=== PATIENT | male | born 1950 | race Caucasian/White ===

== ENCOUNTER 2019-06-10 18:00 | Emergency (ER) | payer MEDICARE ==
[~2019-06-10] VITALS: Ht 177.8 cm; Wt 85.1 kg
[2019-06-10] MEDS ORDERED: SYNT175T2 PO (18:20)
[2019-06-10] MEDS ORDERED: ZEGE20CA PO (18:20)
[2019-06-10] MEDS ORDERED: DULO1CAP6 PO (18:20)
[2019-06-10] MEDS ORDERED: B-122500 PO (18:20)
[2019-06-10] MEDS ORDERED: CLOP75TA2 PO (18:20)
[2019-06-10] MEDS ORDERED: CLAR10CA3 PO (18:20)
[2019-06-10] MEDS ORDERED: TRES100I SC (18:20)
[2019-06-10] MEDS ORDERED: ZYLO300T6 PO (18:20)
[2019-06-10] MEDS ORDERED: REPA1INJ SC (18:20)
[2019-06-10] MEDS ORDERED: FLOM0.4C39 PO (18:20)
[2019-06-10] MEDS ORDERED: LISI-542 PO (18:20)
[2019-06-10] MEDS ORDERED: VITA500079 PO (18:20)
[2019-06-10] MEDS ORDERED: BUPR300T34 PO (18:20)
[2019-06-10] MEDS ORDERED: ASPI81TA85 PO (18:20)
[2019-06-10] MEDS ORDERED: FINA5TAB2 PO (18:20)
[2019-06-10] MEDS ORDERED: NS 500 ML IV ONE (19:15)
[2019-06-10 19:32] LABS: ALBUMIN 3.7 GM/DL (3.2-5.2); ALT/SGPT 41 U/L (12-78); BILIRUBIN,TOTAL 0.5 MG/DL (0.2-1.0); BLOOD UREA NITROGEN 27 MG/DL (7-18); CALCIUM LEVEL 8.6 MG/DL (8.8-10.2); CARBON DIOXIDE LEVEL 26 MEQ/L (21-32); CHLORIDE LEVEL 110 MEQ/L (98-107); CK-MB VALUE MASS 7.2 NG/ML (<3.6); CPK CREATINE PHOSPHOKINASE 131 U/L (26-192); CREATININE FOR GFR 2.06 MG/DL (0.55-1.30); GLOMERULAR FILTRATION RATE 25.5 (>45); GLUCOSE, FASTING 157 MG/DL (70-100); MAGNESIUM LEVEL 2.1 MG/DL (1.8-2.4); POTASSIUM SERUM 4.5 MEQ/L (3.5-5.1); SODIUM LEVEL 142 MEQ/L (136-145); TOTAL PROTEIN 7.1 GM/DL (6.4-8.2); TROPONIN I < 0.02 NG/ML (< 0.10)
[2019-06-10 20:16] LABS: BASO # 0.1 10^3/uL (0.0-0.2); BASO % 0.9 % (0.0-1.0); EOS # 0.2 10^3/uL (0.0-0.5); EOS % 2.3 % (0.0-3.0); HEMATOCRIT 42.8 % (36.0-47.0); HEMOGLOBIN 13.1 g/dl (12.0-15.5); LYMPH # 1.9 10^3/uL (1.5-5.0); LYMPH % 24.3 % (24.0-44.0); MEAN CORPUSCULAR HEMOGLOBIN 27.8 pg (27.0-33.0); MEAN CORPUSCULAR HGB CONC 30.6 g/dl (32.0-36.5); MEAN CORPUSCULAR VOLUME 90.9 fl (80.0-96.0); MONO # 0.8 10^3/uL (0.0-0.8); MONO % 10.5 % (0.0-5.0); NEUTROPHILS # 4.9 10^3/uL (1.5-8.5); NEUTROPHILS % 61.7 % (36.0-66.0); PLATELET COUNT, AUTOMATED 271 10^3/uL (150-450); RED BLOOD COUNT 4.71 10^6/uL (4.00-5.40)
[2019-06-10] MEDS ORDERED: NS 1,000 ML IV SCH (20:45)
[2019-06-10 23:30] VITALS: BP 135/80
[2019-06-10 23:43] LABS: CK-MB VALUE MASS 6.5 NG/ML (<3.6); CPK CREATINE PHOSPHOKINASE 109 U/L (39-308); MB/CK RELATIVE INDEX 5.96 (< OR =4); TROPONIN I < 0.02 NG/ML (< 0.10)
--- NOTE | 2019-06-11 22:29 | ECGEPIP ---
[facility] - ED Test Date: 2019-06-10 Pat Name: ALPESH TERRAZAS Department: Room: - Gender: Male Power Barker: rashawn : 1950 Requested By: WILL Reed Order Number: [id number] Reading MD: Will Carpenter Measurements Intervals [place] Rate: 89 P: 6 [place]: 172 QRS: 12 QRSD: 106 T: 39 QT: 359 QTc: 438 Interpretive Statements SINUS RHYTHM Comparison tracing not on file Electronically Signed on 06-11-2019 22:29:13 EST by Will Carpenter
--- NOTE | 2019-06-11 22:38 | ECGEPIP ---
[facility] - ED Test Date: 2019-06-10 Pat Name: ALPESH TERRAZAS Department: Room: - Gender: Male Mender Hand: [facility] : 1950 Requested By: WILL CHAND Order Number: [id number] Reading MD: Will Carpenter Measurements Intervals [place] Rate: 70 P: 11 [place]: 164 QRS: 20 QRSD: 110 T: 40 QT: 407 QTc: 440 Interpretive Statements SINUS RHYTHM Similar to tracing done 18:15 on the same date Electronically Signed on 06-11-2019 22:38:25 EST by Will Carpenter
== END 2019-06-11 00:04 | disposition home or self-care (01) ==
LOC: EDSEX 18:00 → M ED 18:00
DX: E86.0 Dehydration (principal); E11.9 Type 2 diabetes mellitus without complications; I10 Essential (primary) hypertension; K21.9 Gastro-esophageal reflux disease without esophagitis; Z79.4 Long term (current) use of insulin; Z79.82 Long term (current) use of aspirin; Z79.899 Other long term (current) drug therapy; Z88.5 Allergy status to narcotic agent; Z91.041 Radiographic dye allergy status; Z95.5 Presence of coronary angioplasty implant and graft; Z98.84 Bariatric surgery status

== ENCOUNTER 2020-03-23 11:34 | Emergency (ER) | payer MEDICARE ==
[~2020-03-23] VITALS: Ht 180.3 cm; Wt 85.7 kg
[~2020-03-23 11:34] MED LIST: ASPI81TA86 PO; B-122500 PO; BUPR300T92 PO; CLAR10CA3 PO; CLOP75TA2 PO; DULO1CAP6 PO; FINA5TAB2 PO; FLOM0.4C39 PO; LISI-542 PO; REPA140I2 SC; SYNT175T2 PO; TRES100I SC; VITA500079 PO; ZEGE20CA PO; ZYLO300T6 PO
[2020-03-23 12:18] LABS: BASO % 0.5 % (0.0-1.0); EOS # 0.1 10^3/uL (0.0-0.5); EOS % 1.4 % (0.0-3.0); HEMATOCRIT 36.4 % (42.0-52.0); HEMOGLOBIN 11.5 g/dl (13.5-17.5); LYMPH # 0.8 10^3/uL (1.5-5.0); LYMPH % 12.2 % (24.0-44.0); MEAN CORPUSCULAR HEMOGLOBIN 28.5 pg (27.0-33.0); MEAN CORPUSCULAR HGB CONC 31.6 g/dl (32.0-36.5); MEAN CORPUSCULAR VOLUME 90.1 fl (80.0-96.0); MONO # 0.6 10^3/uL (0.0-0.8); MONO % 9.7 % (0.0-5.0); NEUTROPHILS # 4.9 10^3/uL (1.5-8.5); NEUTROPHILS % 75.9 % (36.0-66.0); PLATELET COUNT, AUTOMATED 199 10^3/uL (150-450); RED BLOOD COUNT 4.04 10^6/uL (4.30-6.10); WHITE BLOOD COUNT 6.5 10^3/uL (4.0-10.0)
--- NOTE | 2020-03-23 12:20 | REPVR ---
PROCEDURE INFORMATION: Exam: XR Chest, 1 View Exam date and time: 03/23/2020 11:57 AM Age: 70 years old Clinical indication: Chest pain; Additional info: Trauma TECHNIQUE: Imaging protocol: XR of the chest Views: 1 view. COMPARISON: No relevant prior studies available. FINDINGS: Lungs: Hyperinflation, without acute airspace disease. Pleural space: No pleural effusion. Heart/Mediastinum: Epicardial fat without cardiomegaly. Bones/joints: Surgical resection of the distal right clavicle. IMPRESSION: Hyperinflation, without acute airspace or pleural disease. Electronically signed by: James Wakefield On 03/23/2020 12:19:37 PM
[2020-03-23 12:50] LABS: ALBUMIN 3.8 GM/DL (3.2-5.2); BILIRUBIN,DIRECT 0.2 MG/DL (0.0-0.2); BILIRUBIN,TOTAL 0.4 MG/DL (0.2-1.0); THYROID STIMULATING HORMONE 0.676 uIU/ML (0.358-3.740); TOTAL PROTEIN 6.6 GM/DL (6.4-8.2)
[2020-03-23] MEDS ORDERED: NS 500 ML IV ONE (13:15)
[2020-03-23 13:45] VITALS: BP 124/76
--- NOTE | 2020-03-24 09:05 | ECGEPIP ---
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
== END 2020-03-23 14:26 | disposition home or self-care (01) ==
LOC: M ED 11:34
DX: R53.83 Other fatigue (principal); E11.9 Type 2 diabetes mellitus without complications; I11.9 Hypertensive heart disease without heart failure; K21.9 Gastro-esophageal reflux disease without esophagitis; Z79.4 Long term (current) use of insulin; Z79.899 Other long term (current) drug therapy; Z79.82 Long term (current) use of aspirin; Z95.5 Presence of coronary angioplasty implant and graft; Z98.84 Bariatric surgery status; Z91.041 Radiographic dye allergy status; Z88.6 Allergy status to analgesic agent

== ENCOUNTER → 2021-03-28 | Outpatient (REF) | payer MEDICARE ==
[~2021-03-28] MED LIST changes: -LISI-542 PO; +LISI-898 PO
== END ==
LOC: M LAB REF 15:53
PROVIDERS: ATTEND Physician Assistant Medical
DX: H60.8X2 Other otitis externa, left ear (principal)

== ENCOUNTER 2023-02-07 19:33 | Emergency (ER) | payer MEDICARE ==
[~2023-02-07] VITALS: Ht 177.8 cm; Wt 77.3 kg
[~2023-02-07 19:33] MED LIST changes: -LISI-898 PO; +LISI5TAB11 PO
[2023-02-07] MEDS ORDERED: ACETAMINOPHEN 325 MG TAB PO ONE (20:45)
[2023-02-07] MEDS ORDERED: ACETAMINOPHEN TAB 650MG DOSE (2X325MG) PO ONE (23:55)
[2023-02-08 01:13] VITALS: BP 106/64; TEMP 100.2; O2SAT 96
[2023-02-08] MEDS ORDERED: NS 1,000 ML IV ONE (01:30)
[2023-02-08 01:40] LABS: HEMATOCRIT 32.5 % (42.0-52.0); HEMOGLOBIN 10.5 g/dl (13.5-17.5); MEAN CORPUSCULAR HEMOGLOBIN 31.8 pg (27.0-33.0); MEAN CORPUSCULAR HGB CONC 32.3 g/dl (32.0-36.5); MEAN CORPUSCULAR VOLUME 98.5 fl (80.0-96.0); PLATELET COUNT, AUTOMATED 226 10^3/uL (150-450); WHITE BLOOD COUNT 8.9 10^3/uL (4.0-10.0)
== END 2023-02-08 03:14 | disposition home or self-care (01) ==
LOC: M ED 19:33
DX: U07.1 COVID-19 (principal); E86.0 Dehydration; E11.9 Type 2 diabetes mellitus without complications; I10 Essential (primary) hypertension; N18.4 Chronic kidney disease, stage 4 (severe); K21.9 Gastro-esophageal reflux disease without esophagitis; Z87.442 Personal history of urinary calculi; Z88.5 Allergy status to narcotic agent; Z98.84 Bariatric surgery status; Z91.041 Radiographic dye allergy status; Z79.82 Long term (current) use of aspirin; Z79.4 Long term (current) use of insulin; Z79.811 Long term (current) use of aromatase inhibitors; Z79.899 Other long term (current) drug therapy

== ENCOUNTER → 2024-03-10 | Outpatient (CLI) | payer MEDICARE ==
[~2024-03-10] MED LIST changes: +BUPR-597 PO; -BUPR300T92 PO
== END ==
LOC: M ADAMS 11:26
PROVIDERS: ATTEND Physician Assistant
DX: G89.29 Other chronic pain (principal)